=== PATIENT | male | born 1980 | race Caucasian/White ===

== ENCOUNTER 2024-07-26 13:56 | Emergency (ER) | payer OTHER ==
[~2024-07-26] VITALS: Ht 175.3 cm; Wt 97.5 kg
[2024-07-26 14:11] VITALS: BP 137/86; PULSE 92; RESP 18; TEMP 97.4; O2SAT 98
[2024-07-26] MEDS ORDERED: FAMO-90 PO (15:44)
[2024-07-26] MEDS: FAMOTIDINE 20 MG TAB PO ONE (16:00)
== END 2024-07-26 16:04 | disposition home or self-care (01) ==
LOC: MED 13:56
DX: K21.9 Gastro-esophageal reflux disease without esophagitis (principal); Z79.899 Other long term (current) drug therapy
CPT/HCPCS: 99282